=== PATIENT | female | born 1985 | race American Indian/Alaskan Native ===

== ENCOUNTER 2020-09-18 10:04 | Emergency (ER) | payer SELFPAY ==
[2020-09-18 11:03] VITALS: BP 112/57
--- NOTE | 2020-09-18 13:57 | Emergency Department Report ---
ED General Adult HPI - General Chief complaint: Weakness Stated complaint: LT BREAST PAINS Time Seen by Provider: 09/18/20 12:46 Source: patient Mode of arrival: Ambulatory Limitations: No Limitations - History of Present Illness Initial comments: 35-year-old female who denies any significant past medical history presents to the ER today with complaints of left-sided body pain and left wrist pain. Patient states that about 3 months ago she started with pain in her left foot, since then the pain has migrated to involve her entire left leg and over the course of the past 3 months pain has been getting worse and now she is having pain in her left arm, left neck and she is also having a headache. She states that 2 weeks ago she started with intermittent tremors to the left side of her mouth, and she states that the other day after taking a picture it appeared that the left side of her face looked different. She states that it wasn't drooping he just looked "different". She states that she had numbness to her left leg prior to the onset of the pain 3 months ago but this has since resolved. She states that the other day while she was taking a shower and she was rubbing on her left arm and felt "different" "like it was numb" when compared to her right arm. She denies any recent head injuries. She reports no left upper or left lower extremity weakness or any speech changes or any vision changes. She denies any nausea or vomiting. She denies any chest pain or shortness of breath. She denies any lower extremity swelling. She denies any DVT/PE risk factors. She states that she has not taken anything for the pain. Patient also states that in the past month she has been having intermittent left-sided breast pain. She denies any nipple discharge, swelling, mass, erythema or bruising to the breast. She states that she has not followed up with a [facility] to get a mammogram. She denies any history of tobacco use or illicit any drug use or any alcohol abuse. MD Complaint: Left-sided body pain/left breast pain -: month(s) - Related Data Previous Rx's Medication Instructions Recorded Last Taken Type Ibuprofen [Motrin] 600 mg PO Q8H PRN #30 tablet 09/18/20 Unknown Rx Allergies Allergy/AdvReac Type Severity Reaction Status Date / Time cyanocobalamin (vitamin B12) Allergy Rash Verified 09/18/20 11:04 nut - unspecified Allergy Rash Verified 09/18/20 11:04 ED Review of Systems ROS: Stated complaint: LT BREAST PAINS Other details as noted in HPI Comment: All other systems reviewed and negative Constitutional: denies: chills, fever Eyes: denies: eye pain, eye discharge, vision change ENT: denies: ear pain, throat pain, dental pain, hearing loss, epistaxis, congestion Respiratory: denies: cough, shortness of breath, SOB with exertion, SOB at rest, wheezing Cardiovascular: denies: chest pain, palpitations, dyspnea on exertion, edema, syncope, paroxysmal nocturnal dyspnea Endocrine: no symptoms reported Gastrointestinal: denies: abdominal pain, nausea, vomiting, diarrhea, constipation, hematemesis, melena, hematochezia Genitourinary: denies: urgency, dysuria, frequency, hematuria, discharge, abnormal menses, dyspareunia Musculoskeletal: arthralgia, myalgia, other (Left-sided neck pain). denies: back pain, joint swelling Skin: denies: rash, lesions Neurological: headache, numbness. denies: weakness, confusion, abnormal gait, vertigo, other Psychiatric: denies: anxiety, depression, auditory hallucinations, visual hallucinations, homicidal thoughts, suicidal thoughts Hematological/Lymphatic: denies: easy bleeding, easy bruising, swollen glands ED Past Medical Hx - Past Medical History Previous Medical History?: No - Surgical History Past Surgical History?: Yes Hx Appendectomy: Yes - Medications Home Medications: Home Medications Medication Instructions Recorded Confirmed Last Taken Type Ibuprofen [Motrin] 600 mg PO Q8H PRN #30 tablet 09/18/20 Unknown Rx ED Physical Exam - General Limitations: No Limitations General appearance: alert, in no apparent distress - Head Head exam: Present: atraumatic, normocephalic, normal inspection - Eye Eye exam: Present: normal appearance, PERRL, EOMI Pupils: Present: normal accommodation - ENT ENT exam: Present: normal exam, mucous membranes moist, TM's normal bilaterally - Neck Neck exam: Present: normal inspection, tenderness (There is mild point tenderness to palpation to the l upper aspect of the left paraspinal muscle. No midline tenderness), full ROM. Absent: meningismus - Respiratory Respiratory exam: Present: normal lung sounds bilaterally. Absent: respiratory distress, wheezes, rales, rhonchi - Cardiovascular Cardiovascular Exam: Present: regular rate, normal rhythm, normal heart sounds - GI/Abdominal GI/Abdominal exam: Present: soft. Absent: distended, tenderness, guarding, rebound - Extremities Exam Extremities exam: Present: normal inspection, full ROM, normal capillary refill, other (Patient has no tenderness to palpation to the left upper no left lower extremity with no swelling noted to the knee either upper or lower extremity. Pulses in the upper and lower extremity normal.). Absent: tenderness, pedal edema, joint swelling, calf tenderness - Back Exam Back exam: Present: normal inspection, full ROM - Neurological Exam Neurological exam: Present: alert, oriented X3, CN II-XII intact, normal gait - Expanded Neurological Exam Expanded Patient oriented to: Present: person, place, time Speech: Present: fluid speech Cranial nerves: EOM's Intact: Normal, Gag Reflex: Normal, Facial Sensation: N ormal Cerebellar function: Finger to Nose: Normal, Heel to Marrero: Normal, Romberg: Normal Upper motor neuron: Fan Neglect: Normal, Pronator Drift: Normal, Babinski Sign: Normal, Sensory Extinction: Normal Sensory exam: Upper Extremity Light Touch: Normal, Upper Extremity Temperature: Normal, Lower Extremity Light Touch: Normal, Lower Extremity Temperature: Normal Motor strength exam: RUE: 5, LUE: 5, RLE: 5, LLE: 5 Best Eye Response ([place]): (4) open spontaneously Best Motor Response (Jorge A): (6) obeys commands Best Verbal Response ([place]): (5) oriented Jorge A Total: 15 - Psychiatric Psychiatric exam: Present: normal affect, normal mood - Skin Skin exam: Present: intact ED Course Vital Signs 09/18/20 09/18/20 10:59 16:38 Temperature 98.3 F Pulse Rate 74 Respiratory 18 Rate Blood Pressure 112/57 [Left] O2 Sat by Pulse 100 100 Oximetry ED Medical Decision Making - Lab Data Result diagrams: 09/18/20 14:01 09/18/20 14:01 - EKG Data EKG shows normal: sinus rhythm Rate: bradycardia (53) - EKG Data Interpretation: no acute changes - Radiology Data Radiology results: report reviewed Patient: LEON KRISHNAMURTHY MR#: [id number] : 1985 Acct:[id number] Age/Sex: 35 / F ADM Date: 09/18/20 Loc: ED Attending Dr: Ordering Physician: STEPHANY MUNOZ Date of Service: 09/18/20 Procedure(s): CT head/brain wo con Accession Number(s): [id number] cc: STEPHANY MUNOZ CT HEAD WITHOUT CONTRAST INDICATION / CLINICAL INFORMATION: left sided body pain/numbness. TECHNIQUE: All CT scans at this location are performed using CT dose reduction for ALARA by means of automated exposure control. COMPARISON: None available. FINDINGS: HEMORRHAGE: No evidence of intracranial hemorrhage or extra-axial fluid collection. EXTRA-AXIAL SPACES: Cortical sulci, sylvian fissures and basilar cisterns have an unremarkable appearance. VENTRICULAR SYSTEM: The third and lateral ventricles are of normal size and configuration. CEREBRAL PARENCHYMA: No areas of abnormal brain parenchymal attenuation are identified. There is no indication of recent infarction. MIDLINE SHIFT OR HERNIATION: There is no mass effect. CEREBELLUM / BRAINSTEM: Brainstem and cerebellum have an unremarkable appearance. MIDLINE STRUCTURES:No abnormalities of the pituitary gland or pineal region are identified. INTRACRANIAL VESSELS:No abnormalities are identified on this noncontrast head CT. ORBITS: visualized portions of the orbits have an unremarkable appearance. SOFT TISSUES of HEAD: No significant abnormality. CALVARIUM: Evaluation of bone windows reveals no abnormalities. PARANASAL SINUSES / MASTOID AIR CELLS: Visualized portions of the paranasal sinuses are free from inflammatory mucosal disease. Mastoid air cells are normally pneumatized. IMPRESSION: 1. Normal head CT without contrast. Signer Name: Alex Mandjuano MD Signed: 09/18/2020 3:03 PM Workstation Name: [facility] Transcribed By: Dictated By: Alex Mandujano MD Electronically Authenticated By: Alex Mandujano MD Signed Date/Time: 09/18/20 1503 DD/ 1501 TD/TT: Ordering Physician: STEPHANY MUNOZ Date of Service: 09/18/20 Procedure(s): XR chest routine 2V Accession Number(s): [id number] cc: STEPHANY MUNOZ Fluoro Time In Minutes: CHEST 2 VIEWS INDICATION / CLINICAL INFORMATION: Left arm pain. COMPARISON: None available. FINDINGS: SUPPORT DEVICES: None. HEART / MEDIASTINUM: No significant abnormality. LUNGS / PLEURA: No significant pulmonary or pleural abnormality. No pneumothorax. ADDITIONAL FINDINGS: No significant additional findings. IMPRESSION: 1. No acute findings. Signer Name: Sylvain Dunlap MD Signed: 09/18/2020 2:51 PM Workstation Name: [id number] Transcribed By: YAMILETH Dictated By: SYLVAIN DUNLAP MD Electronically Authenticated By: SYLVAIN DUNLAP MD Signed Date/Time: 09/18/201450 DD/ 49 TD/TT: - Medical Decision Making All labs reviewed -CBC and CMP unremarkable. Troponin was negative. EKG showed mild bradycardia at 53 but otherwise no STEMI or any acute ischemic changes or any other significant dysrhythmias. Chest x-ray shows nothing acute. Head CT normal. Patient is resting in the bed comfortably. She is not in any acute distress. She is awake alert and oriented x3. She has no focal neurological deficits on exam. She ambulates with a normal gait in the ER. No evidence of meningitis on exam. Examination of her left upper and left lower extremity reveals no tenderness, swelling, bruising, erythema or any other skin discoloration. She is neurovascular intact upper and lower extremities. Exact cause of patient's symptoms at this time unclear. She has a heart score of 0, PERC score of 0. I do not suspect CVA/TIA/ACS/unstable angina, PE or DVT, meningitis, or any other acute emergent conditions warranting additional testing, admission or specialist consult at this time. As far as her breast tenderness I do not see any signs of nipple discharge, no palpable mass, no signs of infection. Informed patient that she needs to follow-up with [facility] for an outpatient mammogram. She will also be given referral to local primary care doctor as she does not have 1 for follow-up. Patient expressed understanding of instructions and agree with plan. Patient was stable at time of discharge. Critical care attestation.: If time is entered above; I have spent that time in minutes in the direct care of this critically ill patient, excluding procedure time. ED Disposition Clinical Impression: Breast pain, left, Pain of left side of body, Paresthesias Disposition: DC- TO HOME OR SELFCARE Is pt being admited?: No Does the pt Need Aspirin: No Condition: Stable Instructions: Breast Tenderness, Pain Without a Known Cause, Paresthesia, [id number]-Hnff Additional Instructions: Recommend that you take the ibuprofen as prescribed. It is important that you follow-up with one of the [facility] listed on your discharge instructions for an outpatient mammogram since you are having left-sided breast pain. It is also important that you follow-up with the primary care doctor listed on your discharge instructions especially if you still continue to have pain on the left side of her body he may refer you over to a neurologist/plant technical specialist for further evaluation. Return to the ER if your symptoms changes or worsens in any way. Prescriptions: Ibuprofen [Motrin] 600 mg PO Q8H PRN #30 tablet PRN Reason: Pain Referrals: [facility] [Provider Group] - 3-[address] [facility] [Provider Group] - 3-5 Days (Primary care physician) [facility] [Provider Group] - 3-5 Days Time of Disposition: 16:10
[2020-09-18 14:19] LABS: Basophils % (Auto) 0.8 % (0.0-1.8); Eosinophils % (Auto) 0.8 % (0.0-4.3); Hematocrit 39.4 % (30.3-42.9); Hemoglobin 13.4 gm/dl (10.1-14.3); Lymphocytes # (Auto) 1.6 K/mm3 (1.2-5.4); Lymphocytes % (Auto) 42.2 % (13.4-35.0); Mean Corpuscular HGB Conc 34 % (30-34); Mean Corpuscular Volume 90 fl (79-97); Monocytes # (Auto) 0.4 K/mm3 (0.0-0.8); Monocytes % (Auto) 10.6 % (0.0-7.3); Platelet Count 198 K/mm3 (140-440); Red Blood Count 4.37 M/mm3 (3.65-5.03)
[2020-09-18 14:33] LABS: Alanine Aminotransferase 10 units/L (7-56); Albumin 4.3 g/dL (3.9-5); Blood Urea Nitrogen 6 mg/dL (7-17); Calcium 9.5 mg/dL (8.4-10.2); Hemolysis Index 8
[2020-09-18 14:34] LABS: BUN/Creatinine Ratio 12
--- NOTE | 2020-09-18 14:56 | XRay Report ---
CHEST 2 VIEWS INDICATION / CLINICAL INFORMATION: Left arm pain. COMPARISON: None available. FINDINGS: SUPPORT DEVICES: None. HEART / MEDIASTINUM: No significant abnormality. LUNGS / PLEURA: No significant pulmonary or pleural abnormality. No pneumothorax. ADDITIONAL FINDINGS: No significant additional findings. IMPRESSION: 1. No acute findings. Signer Name: Sylvain Dunlap MD Signed: 09/18/2020 2:51 PM Workstation Name: [id number]
--- NOTE | 2020-09-18 15:07 | Cat Scan Report ---
CT HEAD WITHOUT CONTRAST INDICATION / CLINICAL INFORMATION: left sided body pain/numbness. TECHNIQUE: All CT scans at this location are performed using CT dose reduction for ALARA by means of automated e xposure control. COMPARISON: None available. FINDINGS: HEMORRHAGE: No evidence of intracranial hemorrhage or extra-axial fluid collection. EXTRA-AXIAL SPACES: Cortical sulci, sylvian fissures and basilar cisterns have an unremarkable appear ance. VENTRICULAR SYSTEM: The third and lateral ventricles are of normal size and configuration. CEREBRAL PARENCHYMA: No areas of abnormal brain parenchymal attenuation are identified. There is no i ndication of recent infarction. MIDLINE SHIFT OR HERNIATION: There is no mass effect. CEREBELLUM / BRAINSTEM: Brainstem and cerebellum have an unremarkable appearance. MIDLINE STRUCTURES:No abnormalities of the pituitary gland or pineal region are identified. INTRACRANIAL VESSELS:No abnormalities are identified on this noncontrast head CT. ORBITS: visualized portions of the orbits have an unremarkable appearance. SOFT TISSUES of HEAD: No significant abnormality. CALVARIUM: Evaluation of bone windows reveals no abnormalities. PARANASAL SINUSES / MASTOID AIR CELLS: Visualized portions of the paranasal sinuses are free from inf lammatory mucosal disease. Mastoid air cells are normally pneumatized. IMPRESSION: 1. Normal head CT without contrast. Signer Name: Alex Mandujano MD Signed: 09/18/2020 3:03 PM Workstation Name: [id number]
--- NOTE | 2020-09-21 11:09 | Electrocardiograph Report ---
[facility] Test Date: 2020-09-18 Test Time: 16:24:54 Pat Name: LEON KRISHNAMURTHY Department: Room: Gender: F Front Sight Attacher: JAQUELINE : 1985 Requested By: STEPHANY MUNOZ Order Number: [id number] Reading MD: Leopoldo Carlos Measurements Intervals [place] Rate: 53 P: 59 NE: 152 QRS: 45 QRSD: 76 T: 31 QT: 454 QTc: 428 Interpretive Statements Sinus bradycardia No previous ECG available for comparison Electronically Signed On 09-21-2020 11:09:38 EDT by Leopoldo Carlos
== END 2020-09-18 16:37 | disposition home or self-care (01) ==
LOC: ED 10:04
DX: M79.18 Myalgia, other site (principal); R20.0 Anesthesia of skin; N64.4 Mastodynia
CPT/HCPCS: 36415; 70450; 71046; 80053; 83735; 84484; 84703; 85025; 93005; 99284